=== PATIENT | female | born 1955 | race Two or more races ===

== ENCOUNTER 2019-09-07 10:45 | Inpatient (IN) | payer BC ==
[2019-09-07] VITALS (14 sets, daily range): BP systolic 135–216; BP diastolic 54–121
[~2019-09-07] VITALS: Ht 160 cm; Wt 68.5 kg
--- NOTE | 2019-09-07 11:00 | NUR ---
SENT BY DR. DOYLE TO THE ER TO EVALUATE HIGH BLOOD PRESSURE. PATIENT A/OX4, BREATHING EVEN AND UNLABORED, NO SOB NOTED, NEEDS ATTENDED, PATIENT DENIES PAIN AT THIS TIME.
[2019-09-07 11:18] LABS: BASOPHILS # (AUTO) 0.1 /CMM (0.0-0.2); BASOPHILS % (AUTO) 0.7 % (0.0-2.0); EOSINOPHILS % (AUTO) 1.2 % (0.0-6.0); HEMATOCRIT 41 % (33-45); HEMOGLOBIN 13.2 g/dL (11.5-14.8); LYMPHOCYTES # (AUTO) 1.9 /CMM (0.8-4.8); LYMPHOCYTES % (AUTO) 25.8 % (20.0-44.0); MEAN CORPUSCULAR HGB CONC 32 g/dl (31.0-36.0); MEAN CORPUSCULAR VOLUME 92 fL (82-100); MONOCYTES # (AUTO) 0.5 /CMM (0.1-1.30); MONOCYTES % (AUTO) 6.9 % (2.0-12.0); NEUTROPHILS # (AUTO) 4.9 /CMM (1.8-8.9); NEUTROPHILS % (AUTO) 65.4 % (43.0-81.0); PLATELET COUNT (AUTO) 343 /CMM (150-450); RED BLOOD CELL COUNT(AUTO) 4.42 MIL/uL (4.0-5.2); WHITE BLOOD COUNT (AUTO) 7.5 K/uL (4.3-11.0)
[2019-09-07] MEDS ORDERED: hydrALAZINE HCL IV 20 MG VIAL ONE (11:18)
[2019-09-07] MEDS ORDERED: hydrALAZINE HCL IV 20 MG VIAL IV ONE ×2 (11:30→13:00)
[2019-09-07 11:38] LABS: CALCIUM, SERUM 9.6 mg/dL (8.5-10.1); CARBON DIOXIDE 28 mmol/L (21-32); CHLORIDE 103 mmol/L (98-107); GLUCOSE 293 mg/dL (74-106); POTASSIUM 4.1 mmol/L (3.5-5.1); SODIUM SERUM 140 mmol/L (136-145); UREA NITROGEN, BLOOD 29 mg/dL (7-18)
[2019-09-07] MEDS ORDERED: ATOR10TA PO (11:40)
[2019-09-07] MEDS ORDERED: RANI150T8 PO (11:40)
[2019-09-07] MEDS ORDERED: ASPI-1152 PO (11:40)
[2019-09-07] MEDS ORDERED: HYDR-4077 PO (11:40)
[2019-09-07 11:54] LABS: ALANINE AMINOTRANSFERASE 22 U/L (12-78); ALBUMIN 3.7 g/dL (3.4-5.0); ALKALINE PHOSPHATASE 105 U/L (46-116); ASPARTATE AMINOTRANSFERASE 13 U/L (15-37); BILIRUBIN,DIRECT 0.1 mg/dL (0.0-0.2); BILIRUBIN,TOTAL 0.3 mg/dL (0.2-1.0); TOTAL PROTEIN, SERUM 7.7 g/dL (6.4-8.2)
--- NOTE | 2019-09-07 13:04 | NUR ---
Patient is resting comfortably in bed with eyes closed. Easily aroused. VSS
[2019-09-07 13:23] LABS: APPEARANCE,URINE Clear (CLEAR); BILIRUBIN,URINE Negative (NEGATIVE); BLOOD, URINE Trace-intact Ery/uL (NEGATIVE); COLOR,URINE Yellow (YELLOW); KETONES,URINE Negative (NEGATIVE); LEUKOCYTE ESTERASE ,URINE Negative (NEGATIVE); NITRITE, URINE Negative (NEGATIVE); PH,URINE 6.5 (5.0-8.0); PROTEIN,URINE >=300 mg/dl (NEGATIVE); UGLUCOSE 500 MG/DL mg/dL (NEGATIVE); UROBILINOGEN,URINE 0.2 EU/dL (0.2)
--- NOTE | 2019-09-07 13:26 | NUR ---
Md at bedside, patient is stable for discharge. discahrge instructions given to patient.
[2019-09-07 13:37] LABS: BACTERIA,URINE Few /HPF (None Seen); HYALINE CASTS, URINE Few /LPF (None Seen); SQUAMOUS EPITHELIAL CELL,UR Few /HPF (None Seen)
--- NOTE | 2019-09-07 14:36 | NUR ---
CALLED [facility].
--- NOTE | 2019-09-07 14:59 | NUR ---
NURSING SUP GAVE ICU BED 259.
[2019-09-07] MEDS ORDERED: ASPIRIN EC 81 MG TABLET.DR PO ONE (15:00)
--- NOTE | 2019-09-07 15:25 | NUR ---
REPORT GIVEN TO MAGDALENA DA SILVA.
[2019-09-07 15:41] LABS: THYROID STIMULATING HORMONE 2.325 uIU/mL (0.358-3.74)
--- NOTE | 2019-09-07 15:49 | NUR ---
PATIENT TRANSFERRED TO ICU 259 VIA ACLS PROTOCOL. NO DISTRESS NOTED. NEEDS ATTENDED. ANOTHER IV LINE ESTABLISHED ON RIGHT FA G18.
--- NOTE | 2019-09-07 16:00 | NUR ---
ICU/RN: ADMISSION NOTE RECEIVED REPORT FROM ER NURSE APRIL. PT TRANSFERRED TO ROOM 259 VIA GURNEY. PT AMBULATORY, ALERT, AWAKE, ORIENTED. ON ROOM AIR, NO DISTRESS NOTED. SINUS RHYTHM/SINUS PAPO ON TELE. PT AFEBRILE. BP ELEVATED, WAITING FOR NICARDIPINE DRIP TO BE DELIVERED TO INITIATE. PT PLACED ON CARDIAC DIET. LEFT AC AND RIGHT FA PIV PATENT AND INTACT, NO S/S OF INFECTION OR INFILTRATION NOTED. ALL NEEDS WILL BE ATTENDED. SAFETY MEASURES TAKEN, BED IN LOW POSITION, SIDE RAILS UP, CALL LIGHT WITHIN REACH.
[2019-09-07] MEDS: NICARDIPINE HCL 20 MG in IV D5W 192 ML IV PRN (16:06)
[2019-09-07] MEDS: hydrALAZINE HCL 25 MG TABLET PO SCH (16:08)
[2019-09-07] MEDS ORDERED: MAGNESIUM HYDROXIDE 30 ML UDC PO PRN (16:30)
[2019-09-07] MEDS ORDERED: ZOLPIDEM TARTRATE 5 MG TABLET PO PRN (16:30)
[2019-09-07] MEDS ORDERED: ACETAMINOPHEN 325 MG TABLET PO PRN (16:30)
[2019-09-07] MEDS ORDERED: HYDROCODONE/APAP 5/325MG 1 EACH TABLET PO PRN (16:30)
[2019-09-07] MEDS ORDERED: MAG HYDROX/AL HYDROX/SIMETH 30 ML UDC PO PRN (16:30)
[2019-09-07] MEDS ORDERED: ONDANSETRON HCL/PF 4 MG/2 ML VIAL IVP PRN (16:30)
[2019-09-07] MEDS ORDERED: ATORVASTATIN 10 MG TABLET PO SCH ×2 (18:00→22:00)
--- NOTE | 2019-09-07 18:00 | NUR ---
ICU/RN: NICARDIPINE DRIP OFF PER PROTOCOL. WILL CONTINUE TO MONITOR BP.
--- NOTE | 2019-09-07 19:24 | NUR ---
ICU/RN: ENDING NOTES,AM BEDSIDE REPORT ENDORSED TO NIGHT NURSE. PT ALERT, AWAKE, FOLLOWS COMMANDS. NO DISTRESS. ON ROOM AIR. SINUS ON TELE. VSS. ALL NEEDS ATTENDED TO, SAFETY MEASURES TAKEN BED IN LOW POSITION, SIDE RAILS UP, CALL LIGHT WITHIN REACH. WILL CONTINUE CARE.
--- NOTE | 2019-09-07 19:30 | NUR ---
RN NOTES, PATIENT AWAKE ALERT,A/O X4 ABLE TO VERBALIZED NEEDS AND CONCERNS, ON ROOM AIR, BREATHING EVEN AND UNLABORED, NO S/S OF ANY SOB/ACUTE DISTRESS NOTED, AT THIS TIME, DENIES ANY PAIN OR DISCOMFORT, SINUS ON TELE MONITOR WITH HR IN 60S AT IS TIME, NO IVF/DRIPS/ INFUSING AT THIS TIME, RIGHT FA AND LEFT AC IV ACCESS PATENT AND INTACT, ALL NEEDS ATTENDED TO, SAFETY MEASURES TAKEN BED IN LOW POSITION, SIDE RAILS UP, CALL LIGHT WITHIN REACH, WILL CONTINUE TO MONITOR CLOSELY.
--- NOTE | 2019-09-07 21:30 | NUR ---
CORE RESCUER NOTE RECEIVED REPORT FROM ELISHA IN ICU. PATIENT IS IN STABLE CONDITION. ON ROOM AIR WITH NO SIGNS OF SOB. PATIENT IS A/OX4 BENGALI AND BENGALI SPEAKER. HAS LAC 20G, RFA 18G FLUSHING AND PATENT. ALL SAFETY PRECAUTION APPLIED WILL CONTINUE TO MONITOR PATIENT
--- NOTE | 2019-09-07 21:32 | NUR ---
RN NOTES, PATIENT ENDORSED TO AVINASH JONES FOR CONTINUATION OF CARE, ON RA BREATHING EVEN AND UNLABORED, NO SOB/ACUTE DISTRESS, BLOOD PRESSURE BEING 140S-150S SINCE THE BEGINNING OF THE SHIFT.
--- NOTE | 2019-09-07 21:32 | NUR ---
RN NOTES, PATIENT IS BEING TRANSFERRED TO [facility]LO[facility] VIA BED AND IN COMPANY OF 2 RNS, WITH ALL ACLS PROTOCOL.
[2019-09-08] VITALS (15 sets, daily range): BP systolic 145–208; BP diastolic 66–86
[2019-09-08] MEDS: NICARDIPINE HCL 20 MG in IV D5W 192 ML IV PRN ×3 (01:28→06:12)
--- NOTE | 2019-09-08 01:28 | NUR ---
COUNTY AUDITOR NOTE PATIENT BP AT 0000 VITALS WAS 180/86. RECHECKED BEFORE STARTING NICARDIPINE BP WAS 208/86. NICADIPINE STARTED AT 0125 AT 50ML/HR (5MG). NOTIFIED SCHEDULING REPRESENTATIVE DR JIMENEZ, WILL CONTINUE TO MONITOR PATIENT.
--- NOTE | 2019-09-08 02:16 | NUR ---
RN NOTE ENDED NICARDIPINE DRIP. RECHECKED BP 146/66.
[2019-09-08] MEDS: BLOOD SUGAR DIAGNOSTIC 1 EACH STRIP VI SCH ×2 (06:33→12:21)
[2019-09-08 06:41] LABS: BASOPHILS % (AUTO) 0.4 % (0.0-2.0); HEMATOCRIT 35 % (33-45); HEMOGLOBIN 11.5 g/dL (11.5-14.8); LYMPHOCYTES % (AUTO) 27.4 % (20.0-44.0); MEAN CORPUSCULAR HGB CONC 33 g/dl (31.0-36.0); MEAN CORPUSCULAR VOLUME 91 fL (82-100); MONOCYTES # (AUTO) 0.6 /CMM (0.1-1.30); MONOCYTES % (AUTO) 7.7 % (2.0-12.0); NEUTROPHILS # (AUTO) 4.5 /CMM (1.8-8.9); NEUTROPHILS % (AUTO) 62.5 % (43.0-81.0); PLATELET COUNT (AUTO) 304 /CMM (150-450); RED BLOOD CELL COUNT(AUTO) 3.82 MIL/uL (4.0-5.2); WHITE BLOOD COUNT (AUTO) 7.2 K/uL (4.3-11.0)
[2019-09-08 06:43] LABS: CALCIUM, SERUM 8.7 mg/dL (8.5-10.1); POTASSIUM 4.2 mmol/L (3.5-5.1)
[2019-09-08 06:47] LABS: MAGNESIUM 1.9 mg/dL (1.8-2.4)
[2019-09-08 06:57] LABS: THYROID STIMULATING HORMONE 2.211 uIU/mL (0.358-3.74)
[2019-09-08] MEDS ORDERED: DEXTROSE 50%-WATER 50 ML DISP.SYRIN IV PRN (07:00)
[2019-09-08] MEDS ORDERED: INSULIN REGULAR, HUMAN 100 UNIT/ML 3 ML VIAL SQ PRN (07:00)
[2019-09-08] MEDS ORDERED: hydrALAZINE HCL IV 20 MG VIAL IV PRN (07:30)
--- NOTE | 2019-09-08 07:30 | NUR ---
HAND ALTERATIONS SEAMSTRESS INITIAL NOTE RECEIVED PATIENT AWAKE AND A/OX4 ABLE TO MAKE NEEDS KNOWN. NO RESPIRATORY DISTRESS NOTED. SKIN WARM AND DRY TO TOUCH. DENIES PAIN OR DISCOMFORT AT THIS TIME. ON TELE MONITOR SINUS PAPO WITH PVCS. HOB ELEVATED. SIDE RAILS UP AND LOCKED. BED KEPT AT LOWEST, CALL LIGHT KEPT WITHIN EASY REACH. WILL CONTINUE TO MONITOR.
--- NOTE | 2019-09-08 07:37 | NUR ---
RN NOTE NEW ORDER PER DR. LIGHT D/C NICARDIPINE, AND BEGIN IV HYDRALAZINE 10MG Q6 PRN. VIA TEXT
--- NOTE | 2019-09-08 07:40 | NUR ---
RN NOTE PATIENT IN BED WITH NO SUDDEN CHANGES. ON ROOM AIR WITH NO SOB. PATIENT IN THE MONITOR IS SINUS PAPO IN THE 50'60'S. PATIENT IS AMBULATORY. NO COMPLAINT OF ANY DISTRESS. IV ACCES IN LAV #20 AND RFA #18 ARE S/L. ALL SAFETY PRECAUTIONS HAVE BEEN APPLIED. ENDORSED PATIENT TO MORNING SHIFT NURSE FOR MARCELINO.
[2019-09-08] MEDS: *INSULIN REGULAR(HUMULIN R)HUM 100 UNIT/ML VIAL SQ PRN ×2 (08:29→12:25)
[2019-09-08] MEDS ORDERED: ASPIRIN EC 81 MG TABLET.DR PO SCH (09:00)
--- NOTE | 2019-09-08 09:00 | NUR ---
GUM ROLLING MACHINE TENDER NOTE 0820 BP 189/73 PRN HYDRALAZINE IVP GIVEN 0900 BP 166/67
[2019-09-08] MEDS ORDERED: LISINOPRIL (20MG) 20 MG TABLET PO SCH (09:30)
[2019-09-08] MEDS: hydrALAZINE HCL 25 MG TABLET PO SCH ×2 (09:50→12:22)
--- NOTE | 2019-09-08 11:16 | NUR ---
SUPERVISOR CD AREA NOTE DR. LAY AT BEDSIDE, WITH ORDERS FOR DISCHARGE. PATIENT AND SON AWARE.
--- NOTE | 2019-09-08 11:22 | NUR ---
ORNAMENTAL METAL ERECTOR NOTE PATIENT WOULD LIKE PNEUMONIA VACCINE HAD FLU VACCINE 2018
[2019-09-08] MEDS ORDERED: PNEUMOCOCCAL 23-VAL P-SAC VAC 0.5 ML VIAL SQ ONE (11:30)
--- NOTE | 2019-09-08 12:00 | NUR ---
ELECTRIC WELL LOGGING OPERATOR NOTE MD AWARE OF BP 170/66. WILL GIVE DUE MEDICATIONS BEFORE DISCHARGE.
--- NOTE | 2019-09-08 13:14 | NUR ---
MARKETING WRITER CLOSING NOTE PATIENT IN STABLE CONDITION, SON AT BEDSIDE. ALL DISCHARGE INSTRUCTIONS GIVEN. ALL PATIENT BELONGINGS WITH PATIENT. PRESCRIPTION GIVEN. PERIPHERAL IVS REMOVED, WITH CATHETER INTACT. ID BAND REMOVED. PATIENT VERBALIZED UNDERSTANDING OF DISCHARGE TEACHINGS. PNEUMONIA VACCINE ADMINISTERED.
== END 2019-09-08 13:00 | disposition home or self-care (01) | DRG 305 ==
LOC: ER 10:45 → ICU 15:01 → TELE1 21:34
DX: I16.0 Hypertensive urgency (principal); Z86.73 Personal history of transient ischemic attack (TIA), and cerebral infarction without residual deficits; E78.5 Hyperlipidemia, unspecified; E11.9 Type 2 diabetes mellitus without complications; F17.210 Nicotine dependence, cigarettes, uncomplicated; I10 Essential (primary) hypertension; R07.9 Chest pain, unspecified; R00.2 Palpitations
CPT/HCPCS: 36415; 76770-TC; 80048-TC; 80061-TC; 80076-TC; 81000-TC; 82962-TC; 83735-TC; 84100-TC; 84439-TC; 84443-TC; 84484-TC; 85025-TC; 85610-TC; 85730-TC; 87081-TC; 90732; 93307-TC; G0378; J0360; J1815; J7060